=== PATIENT | male | born 1955 | race Caucasian/White ===

== ENCOUNTER → 2020-08-09 | Outpatient (CLI) | payer BC | END | disposition home or self-care (01) | LOC: RADMRIMAIN 18:40 | PROVIDERS: ATTEND Orthopaedic Surgery | DX: Z53.9 Procedure and treatment not carried out, unspecified reason (principal) ==

== ENCOUNTER 2022-01-25 11:23 | Emergency (ER) | payer BC, MEDICARE ==
[2022-01-25 12:16] VITALS: TEMP 97.7
[2022-01-25 12:42] LABS: Basophils # (A) 0.1 k/uL (0-0.2); Basophils % (A) 1 %; Eosinophils # (A) 0.4 k/uL (0-0.7); Eosinophils % (A) 4 %; HCT 47.8 % (39.0-53.0); HGB 15.6 gm/dL (13.0-17.5); Lymphocytes # (A) 1.7 k/uL (1.0-4.8); Lymphocytes % (A) 17 %; MCH 29.7 pg (25.0-35.0); MCHC 32.6 g/dL (31.0-37.0); MCV 91.1 fL (80.0-100.0); Mean Platelet Volume 8.3; Monocytes # (A) 0.3 k/uL (0-1.0); Monocytes % (A) 3 %; Neutrophils # (A) 7.4 k/uL (1.3-7.7); Neutrophils % (A) 74 %; Platelet Count 246 k/uL (150-450); RBC 5.25 m/uL (4.30-5.90); RDW 13.3 % (11.5-15.5); WBC 10.1 k/uL (3.8-10.6)
[2022-01-25 12:56] LABS: ALT 42 U/L (4-49); AST 42 U/L (17-59); African American GFR (CKD) >90 (>60 ml/min/1.73 sqM); Albumin 4.4 g/dL (3.5-5.0); Alkaline Phosphatase 61 U/L (38-126); Anion Gap 9 mmol/L; Blood Urea Nitrogen 16 mg/dL (9-20); Calcium 9.1 mg/dL (8.4-10.2); Carbon Dioxide 24 mmol/L (22-30); Chloride 106 mmol/L (98-107); Glucose 122 mg/dL (74-99); Non-African American GFR(CKD) >90 (>60 ml/min/1.73 sqM); Potassium 4.2 mmol/L (3.5-5.1); Sodium 139 mmol/L (137-145); Total Protein 7.5 g/dL (6.3-8.2)
[2022-01-25 12:59] LABS: Partial Thromboplastin Time 24.6 sec (22.0-30.0); Prothrombin Time 10.5 sec (9.0-12.0)
--- NOTE | 2022-01-25 13:13 | CT ---
EXAMINATION TYPE: CT brain wo con DATE OF EXAM: 01/25/2022 COMPARISON: None HISTORY: 66-year-old male Left leg numbness. TECHNIQUE: Examination was done in axial plane without intravenous contrast. Coronal and sagittal r econstructions performed. CT DLP: 1217.4 mGycm Automated exposure control for dose reduction was used. FINDINGS: There is no evidence of acute intracranial hemorrhage, acute ischemic changes, mass, mass-effect, or extra-axial fluid collection. There is no effacement of cerebral sulci or basal subarachnoid cister ns. There is no hydrocephalus. There is no midline shift. Chatman-white matter distinction is preserv ed. Mild patchy white matter hypodensities in both cerebral hemispheres. Moderate mucosal thickening throughout the ethmoid air cells. Mild throughout the remainder of the pa ranasal sinuses. Orbits and globes are intact. Mastoid air cells well pneumatized. Rightward nasal se ptal deviation. IMPRESSION: Mild patchy burden of chronic small vessel ischemic disease. No acute intracranial abnormality seen.
--- NOTE | 2022-01-25 13:58 | XR ---
EXAMINATION TYPE: XR chest 2V DATE OF EXAM: 01/25/2022 COMPARISON: 09/08/2011 HISTORY: 66-year-old male confusion, altered mental status TECHNIQUE: PA and lateral views FINDINGS: Heart limits of normal in size. Diffuse interstitial opacity and hazy density. No adalberto consolidation or pleural effusion. IMPRESSION: 1. Borderline heart size. 2. Diffuse hazy density and interstitial opacity. Correlate for possible etiologies including atypica l pneumonias and pulmonary vascular congestion.
--- NOTE | 2022-01-25 15:05 | ED ---
General Adult HPI - General Chief complaint: Extremity Problem,Nontraumatic Stated complaint: L leg numbness Time Seen by Provider: 01/25/22 14:38 Source: patient Mode of arrival: ambulatory Limitations: no limitations - History of Present Illness Initial comments: Dictation was produced using [employer] dictation software. please excuse any grammatical, word or spelling errors. Chief Complaint: 66-year-old male presents with pins and needle sensation to the left lower extremity History of Present Illness: 66-year-old male presents emergency Department with pins and needles like sensation to his left lower extremity. 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 He states that he was at work when all of a sudden he started to feel pins and needles. Patient denies any pain complaints. States that started in his foot started to go up his leg. Patient denies any numbness. Denies any weakness. Patient denies any history of CVA. Patient denies any exacerbating or medical factors. Patient denies any headaches. The ROS documented in this emergency department record has been reviewed and confirmed by me. Those systems with pertinent positive or negative responses have been documented in the HPI. All other systems are other negative and/or noncontributory. PHYSICAL EXAM: General Impression: Alert and oriented x3, not in acute distress HEENT: Normocephalic atraumatic, extra-ocular movements intact, pupils equal and reactive to light bilaterally, mucous membranes moist. Cardiovascular: Heart regular rate and rhythm Chest: Able to complete full sentences, no retractions, no tachypnea Abdomen: abdomen soft, non-tender, non-distended, no organomegaly Musculoskeletal: Pulses present and equal in all extremities, no peripheral e misael Motor: no focal deficits noted Neurological: CN II-XII grossly intact, no focal motor or sensory deficits noted, no ataxia to the extremities, normal gait, NIH 0 Skin: Intact with no visualized rashes Psych: Normal affect and mood ED course: 66-year-old male presents emergency department for pins and needle sensation to the left lower extremity. Vital signs upon arrival shows blood pressure 218/106, rest of vital signs within acceptable limits. Patient is a history of hypertension. NIH is 0. EKG shows no signs of ischemia or infarction. Patient was in the waiting room. Labs and imaging was ordered by triage nurse per [facility] protocol. CBC, coag panel, metabolic panel is unremarkable. No electrolyte derangement. Computed tomography scan of the brain and x-ray shows no acute processes. There is evidence of patchy burden of chronic small vessel ischemic disease no acute processes noted however. Chest x-ray is nonacute. Repeat blood pressure 206/126. Discussed with patient that I would recommend he be admitted to the hospital due to asymmetric paresthesias with elevated blood pressure. Although his NIH is 0 he still having a focal neurologic deficit elevated blood pressure. There is suspicion for cerebrovascular accident. Certainly the patient that he would fit from short inpatient stay consultation to neurology and neurologic monitoring. Patient refuses and would rather be discharged follow-up with close follow-up with primary care doctor. Patient given strict return precautions. He understands that his decision and the risks involved. EKG interpretation: Ventricular rate 62, sinus rhythm,. 143, care setting 1, QTC 427. No [place] prolongation, no QTC prolongation, no ST or T-wave changes noted. Overall, this EKG is unremarkable - Related Data Allergies Allergy/AdvReac Type Severity Reaction Status Date / Time No Known Allergies Allergy Verified 01/25/22 12:12 Review of Systems ROS Statement: Those systems with pertinent positive or pertinent negative responses have been documented in the HPI. ROS Other: All systems not noted in ROS Statement are negative. Past Medical History Past Medical History: Hypertension History of Any Multi-Drug Resistant Organisms: None Reported Past Surgical History: No Surgical Hx Reported Past Psychological History: No Psychological Hx Reported Smoking Status: Never smoker Past Alcohol Use History: None Reported Past Drug Use History: None Reported General Exam Limitations: no limitations Course Vital Signs 01/25/22 01/25/22 12:12 15:04 Temperature 97.7 F Pulse Rate 60 69 Respiratory 18 20 Rate Blood Pressure 218/106 206/126 O2 Sat by Pulse 95 96 Oximetry Medical Decision Making - Lab Data Result diagrams: 01/25/22 12:19 01/25/22 12:19 Lab Results 01/25/22 01/25/22 01/25/22 Range/Units 12:19 12:19 12:19 WBC 10.1 (3.8-10.6) k/uL RBC 5.25 (4.30-5.90) m/uL Hgb 15.6 (13.0-17.5) gm/dL Hct 47.8 (39.0-53.0) % MCV 91.1 (80.0-100.0) fL MCH 29.7 (25.0-35.0) pg MCHC 32.6 (31.0-37.0) g/dL RDW 13.3 (11.5-15.5) % Plt Count 246 (150-450) k/uL MPV 8.3 Neutrophils % 74 % Lymphocytes % 17 % Monocytes % 3 % Eosinophils % 4 % Basophils % 1 % Neutrophils # 7.4 (1.3-7.7) k/uL Lymphocytes # 1.7 (1.0-4.8) k/uL Monocytes # 0.3 (0-1.0) k/uL Eosinophils # 0.4 (0-0.7) k/uL Basophils # 0.1 (0-0.2) k/uL PT 10.5 (9.0-12.0) sec INR 1.0 (<1.2) APTT 24.6 (22.0-30.0) sec Sodium 139 (137-145) mmol/L Potassium 4.2 (3.5-5.1) mmol/L Chloride 106 (98-107) mmol/L Carbon Dioxide 24 (22-30) mmol/L Anion Gap 9 mmol/L BUN 16 (9-20) mg/dL Creatinine 0.78 (0.66-1.25) mg/dL Est GFR (CKD-EPI)AfAm >90 (>60 ml/min/1.73 sqM) Est GFR (CKD-EPI)NonAf >90 (>60 ml/min/1.73 sqM) Glucose 122 H (74-99) mg/dL Calcium 9.1 (8.4-10.2) mg/dL Total Bilirubin 1.0 (0.2-1.3) mg/dL AST 42 (17-59) U/L ALT 42 (4-49) U/L Alkaline Phosphatase 61 (38-126) U/L Troponin I (0.000-0.034) ng/mL Total Protein 7.5 (6.3-8.2) g/dL Albumin 4.4 (3.5-5.0) g/dL 01/25/22 Range/Units 12:19 WBC (3.8-10.6) k/uL RBC (4.30-5.90) m/uL Hgb (13.0-17.5) gm/dL Hct (39.0-53.0) % MCV (80.0-100.0) fL MCH (25.0-35.0) pg MCHC (31.0-37.0) g/dL RDW (11.5-15.5) % Plt Count (150-450) k/uL MPV Neutrophils % % Lymphocytes % % Monocytes % % Eosinophils % % Basophils % % Neutrophils # (1.3-7.7) k/uL Lymphocytes # (1.0-4.8) k/uL Monocytes # (0-1.0) k/uL Eosinophils # (0-0.7) k/uL Basophils # (0-0.2) k/uL PT (9.0-12.0) sec INR (<1.2) APTT (22.0-30.0) sec Sodium (137-145) mmol/L Potassium (3.5-5.1) mmol/L Chloride (98-107) mmol/L Carbon Dioxide (22-30) mmol/L Anion Gap mmol/L BUN (9-20) mg/dL Creatinine (0.66-1.25) mg/dL Est GFR (CKD-EPI)AfAm (>60 ml/min/1.73 sqM) Est GFR (CKD-EPI)NonAf (>60 ml/min/1.73 sqM) Glucose (74-99) mg/dL Calcium (8.4-10.2) mg/dL Total Bilirubin (0.2-1.3) mg/dL AST (17-59) U/L ALT (4-49) U/L Alkaline Phosphatase (38-126) U/L Troponin I <0.012 (0.000-0.034) ng/mL Total Protein (6.3-8.2) g/dL Albumin (3.5-5.0) g/dL Disposition Clinical Impression: Leg paresthesia Disposition: HOME SELF-CARE Condition: Fair Instructions (If sedation given, give patient instructions): Paresthesia (ED) Is patient prescribed a controlled substance at d/c from ED?: No Referrals: None,Stated [Primary Care Provider] - 1-2 days Time of Disposition: 15:25
[2022-01-25] MEDS ORDERED: ASPIRIN 81 MG PO STA (15:14)
[2022-01-25 15:17] VITALS: BP 206/126; PULSE 69; RESP 20
== END 2022-01-25 15:28 | disposition home or self-care (01) ==
LOC: EC 11:23
DX: R20.2 Paresthesia of skin (principal); I10 Essential (primary) hypertension
CPT/HCPCS: 36415; 70450; 71046; 80053; 84484; 85025; 85610; 85730; 93005

== ENCOUNTER → 2023-04-22 | Outpatient (CLI) | payer MEDICARE ==
--- NOTE | 2023-04-22 13:14 | US ---
EXAMINATION TYPE: US thyroid st tissue head/neck DATE OF EXAM: 04/22/2023 COMPARISON: NONE CLINICAL INDICATION: Male, 67 years old with history of R221 MASS; Right neck swelling TECHNIQUE: Multiple grayscale and color Doppler images of the right neck in the patient's region of c oncern were obtained. FINDINGS/IMPRESSION: Patient has localized swelling on right neck. Area of concern was scanned. No discrete abnormalities seen on ultrasound today. The right side appears more echogenic than the left side on comparison. No solid or cystic lesion identified. If there is continued clinical concern, consider further evaluatio n with CT neck with IV contrast.
== END | disposition home or self-care (01) ==
LOC: RADUSWWP 11:54
PROVIDERS: ATTEND Family Medicine
DX: R22.1 Localized swelling, mass and lump, neck (principal)
CPT/HCPCS: 76536

== ENCOUNTER → 2023-05-18 | Outpatient (CLI) | payer MEDICARE ==
[2023-05-18 14:46] LABS: African American GFR (CKD) >90 (>60 ml/min/1.73 sqM); Blood Urea Nitrogen 20 mg/dL (9-20); Non-African American GFR(CKD) 89 (>60 ml/min/1.73 sqM)
--- NOTE | 2023-05-23 21:49 | CT ---
EXAMINATION TYPE: CT soft tissue neck wo/w con DATE OF EXAM: 05/18/2023 COMPARISON: Neck ultrasound 04/22/2023 HISTORY: 67-year-old male R2 2.1, Mass/lump on rt lateral side of neck x3mo. TECHNIQUE: Contiguous axial scanning of the soft tissues of the neck performed without and with IV Co ntrast, patient injected with 100 ml mL of Isovue 300. Coronal/sagittal reconstructions performed. CT DLP: 1665.5 mGycm Automated exposure control for dose reduction was used. FINDINGS: The thyroid and submandibular glands as well as the parotid glands appear satisfactory. There is a 5 mm round calcification at the anterior medial margin of the right submandibular gland th at could represent a small sialolith. Moderate arthroscopic calcifications right carotid bifurcation and mild at the left carotid bifurcati on. Slight flattening of the tracheal airway. Visualized intracranial structures, orbits and globes, and mastoid air cells appear clear. There is moderate mucosal thickening throughout the ethmoid air cells and rightward nasal septal bernard ation. Some lobulated mucosal thickening along the floors of the maxillary sinuses. Nasopharynx is clear. Mass effect on the posterior wall of the oropharynx from retropharyngeal course of the ICAs. Glottic and subglottic structures appear clear. No cervical lymphadenopathy. There is a large fatty mass along the right posterior aspect of the paraspinal musculature underlying and dorsally displacing the trapezius and extending down into the upper most chest. This corresponds to the patient's palpable site measuring up to 9.3 cm wide by 5.5 cm thick by 11.2 cm craniocaudal. Refer to axial image 46 and sagittal image 31. There is some minimal soft tissue stranding along the inferior margin, refer to sagittal image 29. No suspicious soft tissue nodularity is seen. Bones: Advanced spondylotic change throughout the cervical spine. IMPRESSION: 1. LARGE FATTY TUMOR MEASURING 11.2 X 9.2 X 5.5 CM CORRESPONDING TO THE PATIENT'S RIGHT-SIDED PALPABL E SITE. THIS IS INTERPOSED BETWEEN THE TRAPEZIUS AND PARASPINAL MUSCULATURE, DORSALLY DISPLACING THE TRAPEZIUS DUE TO ITS LARGE SIZE. THERE IS MINIMAL SOFT TISSUE STRANDING WITHIN THE INFERIOR ASPECT OF THE MASS. 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 REGARDLESS OF WHETHER GROWTH IS NOTED, RECOMMEND ORTHOPEDIC ONCOLOGY REFERRAL FOR FURTHER MANAGEM ENT/SURVEILLANCE 2. POSSIBLE SMALL 5 MM SIALOLITH ALONG THE ANTERIOR MARGIN OF THE RIGHT SUBMANDIBULAR GLAND.
== END | disposition home or self-care (01) ==
LOC: RADCTMAIN 14:09
PROVIDERS: ATTEND Family Medicine
DX: D17.9 Benign lipomatous neoplasm, unspecified (principal); R22.1 Localized swelling, mass and lump, neck
CPT/HCPCS: 82565; 84520; 70492; 36415; Q9967

== ENCOUNTER → 2024-03-23 | Outpatient (CLI) | payer MEDICARE ==
[2024-03-23 14:41] LABS: African American GFR (CKD) 83 (>60 ml/min/1.73 sqM); Albumin 4.3 g/dL (3.5-5.0); Anion Gap 6 mmol/L; Blood Urea Nitrogen 15 mg/dL (9-20); Calcium 9.1 mg/dL (8.4-10.2); Carbon Dioxide 28 mmol/L (22-30); Chloride 108 mmol/L (98-107); Glucose 95 mg/dL (74-99); Non-African American GFR(CKD) 72 (>60 ml/min/1.73 sqM); Phosphorus 3.3 mg/dL (2.5-4.5); Sodium 142 mmol/L (137-145)
--- NOTE | 2024-03-23 16:31 | CT ---
EXAMINATION TYPE: CT soft tissue neck w con CT DLP: 724.7 mGycm, Automated exposure control for dose reduction was used. DATE OF EXAM: 03/23/2024 3:20 PM COMPARISON: CT neck 05/18/2023, thyroid ultrasound 04/22/2023. CLINICAL INDICATION:Male, 68 years old with history of R22.1, D17.0; [facility], F/U st neck lipoma TECHNIQUE: Standard enhanced CT of the neck following intravenous administration of 100 cc of Isovue 300. Axial sections with coronal and sagittal reformats were obtained. FINDINGS: Brain: Visualized portions are grossly unremarkable. Orbits: Unremarkable Sinuses: Grossly unremarkable. Suprahyoid Neck: The oropharynx, oral cavity, parapharyngeal and retropharyngeal spaces are clear and symmetric. The nasopharynx is unremarkable. Infrahyoid Neck: The larynx, hypopharynx, and supraglottic area are clear and symmetric. Parotid Glands: Unremarkable. Submandibular Glands: Degenerative and is unremarkable. 5 mm stable round calcification in the anteri or medial margin of the right subdural gland that could represent a small sialolith. Musculoskeletal: Degenerative disc disease changes of the visualized spine are present. Lymph nodes: No cervical lymphadenopathy. Vascular structures: Moderate atherosclerotic calcifications at the right carotid bifurcation and mil d at the left carotid bifurcation. Somewhat retropharyngeal course of the bilateral internal carotid arteries with right greater than left. Thoracic Inlet/airway: Airway is patent. The lung apices are clear. Soft tissues/Thyroid: Thyroid is unremarkable. Increased size of large fatty mass along the right pos terior aspect of the paraspinal musculature underlying and dorsally displacing the trapezius extendin g down into the upper most chest. This previously measured 9.3 cm wide by 5.5 cm thick with 11.2 cm c ranial caudal. This now measures 9.9 x 8.2 x 11.9 cm. There is similar minimal soft tissue stranding along the inferior margin. No suspicious soft tissue nodularity is seen. Other: none. IMPRESSION: 1. Increased size of large fatty tumor measuring 11.9 x 9.9 x 8.2 cm, previously 11.2 x 9.2 x 5.5 cm . This is again interspersed between the trapezius and paraspinal musculature with dorsal displacemen t of the trapezius due to its large size. There is again similar minimal soft tissue stranding within the inferior aspect of the mass without discrete soft tissue nodularity. Again consider lipoma/atypi nahid lipomatous tumor with low-grade liposarcoma within the differential. Consider surgical resection and/or surveillance. 2. Stable possible small 5 mm sialolith along the anterior margin of the right submandibular gland. [facility], , 03/23/2024 4:28 PM
== END | disposition home or self-care (01) ==
LOC: RADCTMAIN 13:52
PROVIDERS: ATTEND Otolaryngology
DX: D17.0 Benign lipomatous neoplasm of skin and subcutaneous tissue of head, face and neck (principal); R22.1 Localized swelling, mass and lump, neck
CPT/HCPCS: 36415; 70491; 80069